=== PATIENT | male | born 1995 | race Caucasian/White ===

== ENCOUNTER → 2016-02-24 | Outpatient (CLI) | payer OTHER | LOC: HYPER 06:59 | DX: T81.31XD Disruption of external operation (surgical) wound, not elsewhere classified, subsequent encounter (principal); L05.02 Pilonidal sinus with abscess; Y83.8 Other surgical procedures as the cause of abnormal reaction of the patient, or of later complication, without mention of misadventure at the time of the procedure ==

== ENCOUNTER → 2016-05-12 | Outpatient (CLI) | payer OTHER | LOC: HYPER 04-06 10:16 | DX: T81.31XD Disruption of external operation (surgical) wound, not elsewhere classified, subsequent encounter (principal); L05.02 Pilonidal sinus with abscess; Y83.8 Other surgical procedures as the cause of abnormal reaction of the patient, or of later complication, without mention of misadventure at the time of the procedure ==